=== PATIENT | male | born 1970 | race Native Hawaiian/Other Pacific Islander ===

== ENCOUNTER 2017-06-21 07:47 | Outpatient (CLI) | payer OTHER ==
[~2017-06-21] VITALS: Ht 193 cm; Wt 117.9 kg
== END 2017-06-21 22:43 | disposition home or self-care (01) ==
LOC: NM 07:47
DX: R07.89 Other chest pain (principal); E78.4 Other hyperlipidemia; I10 Essential (primary) hypertension
CPT/HCPCS: A9500; J2785

== ENCOUNTER 2017-12-19 23:17 | Inpatient (IN) | payer OTHER ==
[~2017-12-19] VITALS: Ht 193 cm; Wt 127.5 kg
[2017-12-19 23:20] VITALS: BP 134/94; TEMP 98.1
[2017-12-20] VITALS (9 sets, daily range): BP systolic 130–155; BP diastolic 83–95; TEMP 98–98.5; Ht 193 cm; Wt 127.5 kg
[2017-12-20 01:21] LABS: PLATELET COUNT 264 K/uL (142-355)
[2017-12-20 01:26] LABS: SODIUM 140 mmol/L (136-145)
[2017-12-20] MEDS ORDERED: BUSPIRONE7.5 MG PO (10:07)
[2017-12-20] MEDS ORDERED: TRAZ50TA36 PO (10:09)
[2017-12-20] MEDS ORDERED: MELOXICAM7.5 MG PO (10:10)
[2017-12-20] MEDS ORDERED: TIZA4TAB5 PO (10:11)
[2017-12-21] VITALS: BP 142/80; TEMP 98
[2017-12-21 04:00] VITALS: BP 152/89; TEMP 97.7
[2017-12-21 06:06] LABS: POTASSIUM 3.9 mmol/L (3.6-5.2)
[2017-12-21 06:22] LABS: PLATELET COUNT 236 K/uL (142-355)
[2017-12-21 08:20] VITALS: BP 148/92; TEMP 97.6
[2017-12-21 12:19] VITALS: BP 176/98; TEMP 98
== END 2017-12-21 16:10 | disposition home or self-care (01) | DRG 292 ==
LOC: EDP 23:17 → ED 23:17 → MED/SURG 12-20 02:53
PROVIDERS: Allergy & Immunology; ADMIT Emergency Medicine
DX: I50.9 Heart failure, unspecified (principal); F31.89 Other bipolar disorder; I10 Essential (primary) hypertension
CPT/HCPCS: 36415; 80053; 82550; 82553; 83036; 83880; 84484; 85027; 93005; 94760; 99284; J1940

== ENCOUNTER 2018-08-02 19:52 | Emergency (ER) | payer OTHER ==
[~2018-08-02] VITALS: Ht 193 cm; Wt 117.9 kg
[~2018-08-02 19:52] MED LIST: BUSPIRONE7.5 MG PO; MELOXICAM7.5 MG PO; TIZA4TAB5 PO; TRAZ50TA36 PO
[2018-08-02] MEDS ORDERED: IBU600 MG PO (21:45)
[2018-08-02 21:54] VITALS: BP 135/80; TEMP 98.1
== END 2018-08-02 21:54 | disposition home or self-care (01) ==
LOC: ED 19:52
DX: S80.01XA Contusion of right knee, initial encounter (principal); V43.62XA Car passenger injured in collision with other type car in traffic accident, initial encounter; Y92.89 Other specified places as the place of occurrence of the external cause
CPT/HCPCS: 99282

== ENCOUNTER 2019-05-08 15:00 | Emergency (ER) | payer OTHER ==
[~2019-05-08] VITALS: Ht 193 cm; Wt 120.2 kg
[~2019-05-08 15:00] MED LIST changes: +IBU600 MG PO
[2019-05-08 15:08] VITALS: TEMP 97.7
[2019-05-08 15:48] VITALS: BP 146/92
== END 2019-05-08 15:56 | disposition home or self-care (01) ==
LOC: ED 15:00
DX: S53.492A Other sprain of left elbow, initial encounter (principal); W18.39XA Other fall on same level, initial encounter; Y92.89 Other specified places as the place of occurrence of the external cause
CPT/HCPCS: 93005; 96372; 99282; 99283; J1885

== ENCOUNTER 2020-02-17 16:41 | Emergency (ER) | payer OTHER ==
[~2020-02-17] VITALS: Ht 193 cm; Wt 120.2 kg
[2020-02-17 17:25] LABS: PLATELET COUNT 249 K/uL (142-355)
[2020-02-17 17:34] LABS: POTASSIUM 4.6 mmol/L (3.6-5.2)
[2020-02-17 20:25] VITALS: BP 142/82; TEMP 98.2
== END 2020-02-17 20:30 | disposition home or self-care (01) ==
LOC: ED 16:41
PROVIDERS: Family Medicine
PROC: 0T9B70Z Drainage of Bladder with Drainage Device, Via Natural or Artificial Opening (ICD-10-PCS; principal; 2020-02-17)
DX: N40.1 Benign prostatic hyperplasia with lower urinary tract symptoms (principal); N13.8 Other obstructive and reflux uropathy; I10 Essential (primary) hypertension; F17.210 Nicotine dependence, cigarettes, uncomplicated
CPT/HCPCS: 36415; 51702; 80053; 81000; 85027; 96360; 96375; 99284; J0360; J1885; J2175; J2405